=== PATIENT | female | born 1970 | race Caucasian/White ===

== ENCOUNTER 2019-06-13 14:49 | Emergency (ER) | payer SELFPAY ==
--- NOTE | 2019-06-13 15:28 | ER Document Report ---
ED GI/ <KIARRA BRO - Last Filed: 06/13/19 17:41> - General TRAVEL OUTSIDE OF THE [place] IN LAST 30 DAYS: No <ALEX TAY - Last Filed: 06/13/19 18:00> - General Chief Complaint: Vaginal Bleeding Stated Complaint: VAGINAL BLEEDING Time Seen by Provider: 06/13/19 15:18 Primary Care Provider: CARMELLA PAPPAS MD [ACTIVE STAFF] - Follow up as needed Notes: 48-year-old female presents the emergency department with chief complaint of abnormal vaginal bleeding. Patient states that for the last 1 week she has had constant bleeding which at times she would soak through more than 4 pads in 1 hour. She said the bleeding is constant and she is having associated abdominal cramping with it. Her last regular period was October 2018, she had some spotting in March 2019, and now constant bleeding. She has associated weakness and periodic shortness of breath. Patient has a strong family history of cancer with both her parents. Patient denies any recent illness, patient is not sexually active. (ALEX TAY) Past Medical History - Social History Smoking Status: Unknown if Ever Smoked Family History: None <ALEX TAY - Last Filed: 06/13/19 18:00> Review of Systems - Review of Systems Constitutional: See HPI EENT: No symptoms reported Cardiovascular: See HPI Respiratory: See HPI Gastrointestinal: See HPI Genitourinary: See HPI Female Genitourinary: See HPI Musculoskeletal: No symptoms reported Skin: No symptoms reported Hematologic/Lymphatic: No symptoms reported Neurological/Psychological: See HPI <ALEX TAY - Last Filed: 06/13/19 18:00> Physical Exam <ALEX TAY - Last Filed: 06/13/19 18:00> - Vital signs Vitals: Temp Pulse Resp BP Pulse Ox 98.2 F 103 H 18 148/66 H 94 06/13/19 14:54 06/13/19 14:54 06/13/19 14:54 06/13/19 14:54 06/13/19 14:54 - Notes Notes: PHYSICAL EXAMINATION: Reviewed vital signs and charting by RN GENERAL: Alert, interacts well. No acute distress. HEAD: Normocephalic, atraumatic. EYES: Pupils equal and round. Extraocular movements intact. ENT: Oral mucosa moist, tongue midline. NECK: Full range of motion. Trachea midline. LUNGS: Clear to auscultation bilaterally, no wheezes, rales, or rhonchi. No respiratory distress. HEART: Regular rate and rhythm. No murmur ABDOMEN: soft, non-tender. No distention. Bowel sounds present EXTREMITIES: Moves all 4 extremities spontaneously. No edema, No cyanosis. PSYCH: Normal affect, normal mood. SKIN: Warm, dry, normal turgor. No rashes or lesions noted. (ALEX TAY) Course - Laboratory Result Diagrams: 06/13/19 16:15 06/13/19 16:15 <KIARRA BRO - Last Filed: 06/13/19 17:41> - Laboratory Result Diagrams: 06/13/19 16:15 06/13/19 16:15 <ALEX TAY - Last Filed: 06/13/19 18:00> - Re-evaluation Re-evalutation: 06/13/19 17:41 Pelvic exam done with MELODIE Mendoza at bedside. Patient did have a little bit of bleeding, but no abnormalities noted at the cervix or in the vagina. Information passed on to GILBERT Levin. (KIARRA BRO) 06/13/19 17:59 All lab work has returned and patient's hemoglobin is 11.9. See ultrasound impression below. At this time patient is stable, vital signs within normal limits, and I am going to give her a referral to our on-call GUN SEALING MACHINE OPERATOR, Dr. Pappas for follow-up tomorrow morning. Stable for discharge (ALEX TAY) - Vital Signs Vital signs: Temp Pulse Resp BP Pulse Ox 98.2 F 103 H 18 148/66 H 94 06/13/19 14:54 06/13/19 14:54 06/13/19 14:54 06/13/19 14:54 06/13/19 14:54 - Laboratory Laboratory results interpreted by me: 06/13/19 06/13/19 06/13/19 16:15 16:15 16:15 Hgb 11.9 L Hct 34.2 L Total Protein 6.1 L Urine Protein 100 H Urine Blood LARGE H Ur Leukocyte Esterase SMALL H Discharge <KIARRA BRO - Last Filed: 06/13/19 17:41> <ALEX TAY - Last Filed: 06/13/19 18:00> - Discharge Clinical Impression: Vaginal bleeding Condition: Good Disposition: HOME, SELF-CARE Additional Instructions: You were seen today for dysfunctional uterine bleeding. This is when you have vaginal bleeding and abdominal cramping off of your normal menstrual cycle or when you no longer have menstrual cycles. You need to follow-up with GUN SEALING MACHINE OPERATOR or your primary care physician the next 1-3 days. Return immediately if you worsening pain, you began bleeding through more than 2 pads per hour for more than 3 hours, you pass out, have persistent vomiting, develop a fever greater than 101F, or any other symptoms that are concerning to you. Referrals: CARMELLA PAPPAS MD [ACTIVE STAFF] - Follow up tomorrow
--- NOTE | 2019-06-13 16:18 | RADIOLOGY REPORT (SQ) ---
EXAM DESCRIPTION: U/S NON OB PEL TV W/DOPPLER COMPLETED DATE/TIME: 06/13/2019 4:00 pm REASON FOR STUDY: abnormal vaginal bleeding COMPARISON: None. TECHNIQUE: Dynamic and static grayscale images acquired of the pelvis via transvaginal approach and recorded on PACS. Additional selected color Doppler and spectral images recorded. LIMITATIONS: None. FINDINGS: UTERUS: Contour normal. No mass. ENDOMETRIAL STRIPE: Thickened. No masses. CERVIX: No nabothian cysts. RIGHT OVARY AND DOPPLER: Normal size. No worrisome masses. Simple appearing cyst measuring 2.5 cm. Normal arterial vascular flow without evidence for torsion. LEFT OVARY AND DOPPLER: Normal size. Simple appearing cyst measuring 2.1 cm. No worrisome masses. N ormal arterial vascular flow without evidence for torsion. FREE FLUID: None noted. OTHER: No other significant finding. MEASUREMENTS: UTERUS: 10.7 x 5.0 x 7.2 cm ENDOMETRIAL STRIPE: 1.0 cm RIGHT OVARY: 3.7 x 2.5 x 2.1 cm LEFT OVARY: 3.5 x 3.2 x 2.2 cm IMPRESSION: 1. The endometrium measures 1.0 cm in thickness. By report, the patient is postmenopau luis, and this endometrial thickness is abnormal if the patient is truly postmenopausal (greater than 1 year since last menstrual cycle). Recommend gynecological evaluation and consideration of endometr ial biopsy to exclude malignancy. No mass, polyp, or other discrete lesion is identified. 2. There are bilateral simple appearing ovarian cysts measuring 2.5 cm on the right and 2.1 cm on th e left, which are likewise abnormal in the postmenopausal setting although nonetheless likely benign sequelae of functional follicles. Recommend initial follow-up ultrasound at 1 year to ensure stabili ty. TECHNICAL DOCUMENTATION: JOB ID: [id number] [employer]- All Rights Reserved Rev Reading location - IP/workstation name: [email or web address]
[2019-06-13 16:38] LABS: ABSOLUTE EOSINOPHILS # (AUTO) 0.2 10^3/uL (0.0-0.6); ABSOLUTE LYMPHOCYTES (AUTO) 1.5 10^3/uL (0.5-4.7); ABSOLUTE MONOCYTES (AUTO) 0.5 10^3/uL (0.1-1.4); ABSOLUTE NEUT (AUTO) 3.7 10^3/uL (1.7-8.2); BASOPHILS % (AUTO) 0.7 % (0-2); EOSINOPHILS % (AUTO) 3.7 % (0-6); HEMATOCRIT 34.2 % (36.0-47.0); HEMOGLOBIN 11.9 g/dL (12.0-15.5); LYMPHOCYTES % (AUTO) 25.8 % (13-45); MEAN CORPUSCULAR HEMOGLOBIN 31.6 pg (27.0-33.4); MEAN CORPUSCULAR HGB CONC 34.8 g/dL (32.0-36.0); MEAN CORPUSCULAR VOLUME 91 fl (80-97); MONOCYTES % (AUTO) 8.1 % (3-13); PLATELET COUNT 199 10^3/uL (150-450); RED BLOOD COUNT 3.76 10^6/uL (3.72-5.28); RED CELL DISTRIBUTION WIDTH 13.5 % (11.5-14.0); SEGMENTED NEUTROPHILS % (AUTO) 61.7 % (42-78); TOTAL CELLS COUNTED % (AUTO) 100 %
[2019-06-13 16:45] LABS: APPEARANCE,URINE SLIGHTLY-CLOUDY; BILIRUBIN,URINE NEGATIVE (NEGATIVE); COLOR,URINE RED; GLUCOSE, URINE NEGATIVE (NEGATIVE); KETONES,URINE NEGATIVE (NEGATIVE); LEUKOCYTE ESTERASE,URINE SMALL (NEGATIVE); NITRITE,URINE NEGATIVE (NEGATIVE); PROTEIN,URINE 100 mg/dL (NEGATIVE); URINE SPECIFIC GRAVITY 1.008; UROBILINOGEN,URINE NEGATIVE mg/dL (<2.0)
[2019-06-13 16:56] LABS: ALBUMIN 3.7 g/dL (3.5-5.0); ALKALINE PHOSPHATASE 44 U/L (38-126); ANION GAP 6 (5-19); ASPARTATE AMINO TRANSFERASE 15 U/L (14-36); BILIRUBIN,DIRECT 0.1 mg/dL (0.0-0.4); BILIRUBIN,TOTAL 0.2 mg/dL (0.2-1.3); BLOOD UREA NITROGEN 11 mg/dL (7-20); CALCIUM 9.1 mg/dL (8.4-10.2); CARBON DIOXIDE 28 mmol/L (22-30); CHLORIDE 103 mmol/L (98-107); GLUCOSE 96 mg/dL (75-110); POTASSIUM 4.1 mmol/L (3.6-5.0); TOTAL PROTEIN 6.1 g/dL (6.3-8.2)
[2019-06-13 18:00] VITALS: BP 142/63
== END 2019-06-13 18:01 | disposition home or self-care (01) ==
LOC: ER 14:49
DX: N93.9 Abnormal uterine and vaginal bleeding, unspecified (principal); R10.9 Unspecified abdominal pain; R53.1 Weakness; R06.02 Shortness of breath; Z80.9 Family history of malignant neoplasm, unspecified
CPT/HCPCS: 36415; 76830; 80053; 81001; 81025; 85025; 93976; 99284